=== PATIENT | female | born 2000 | race African-American/Black ===

== ENCOUNTER 2021-11-11 12:45 | Inpatient (IN) | payer OTHER ==
[~2021-11-11] VITALS: Ht 162.6 cm; Wt 108.0 kg
[2021-11-11 13:23] LABS: BASOPHILS % (AUTO) 0.5 % (0.0-2.0); EOSINOPHILS % (AUTO) 0.1 % (1.0-6.0); HEMATOCRIT 37.6 % (36-46); HEMOGLOBIN 12.7 g/dL (12.0-16.0); LYMPHOCYTES # (AUTO) 1.5 K/uL (1.0-4.8); LYMPHOCYTES % (AUTO) 17.1 % (22.0-44.0); MEAN CORPUSCULAR HEMOGLOBIN 31.1 pg (26.0-34.0); MEAN CORPUSCULAR HGB CONC 33.7 G/dL (31.0-37.0); MEAN CORPUSCULAR VOLUME 92 fL (80-100); MONOCYTES # (AUTO) 0.5 K/uL (0.1-1.0); MONOCYTES % (AUTO) 5.7 % (2.0-9.0); NEUTROPHILS # (AUTO) 6.5 K/uL (1.8-7.7); NEUTROPHILS % (AUTO) 76.6 % (40.0-70.0); PLATELET COUNT (AUTO) 254 K/uL (150-450); RED BLOOD CELL COUNT(AUTO) 4.08 MIL/uL (4.00-5.20)
[2021-11-11 13:32] LABS: ANION GAP 9 mmol/L (8-16); CALCIUM, TOTAL 9.9 mg/dL (8.8-10.5); CARBON DIOXIDE 28 mmol/L (22-29); CHLORIDE 103 mmol/L (98-107); CREATININE 0.79 mg/dL (0.60-1.30); GLOMERULAR FILTR. RATE CALC > 60 mL/min (>60); GLUCOSE,RANDOM 105 mg/dL (70-110); POTASSIUM 3.9 mmol/L (3.5-5.1); SODIUM SERUM 140 mmol/L (136-145); UREA NITROGEN, BLOOD 11 mg/dL (7-18)
[2021-11-11 13:38] LABS: ALANINE AMINOTRANSFERASE 31 U/L (12-78); ALBUMIN 4.2 g/dL (3.4-5.0); ALKALINE PHOSPHATASE 137 U/L (46-116); ASPARTATE AMINOTRANSFERASE 50 U/L (15-37); TOTAL PROTEIN, SERUM 8.7 g/dL (6.4-8.2)
[2021-11-11] MEDS ORDERED: LORazepam 1 MG TABLET PO ONE (14:00)
[2021-11-11] MEDS ORDERED: BACITRACIN 0.9 GM PACKET OINTMENT TP ONE (14:00)
[2021-11-11 14:07] LABS: SALICYLATE < 2.8 mg/dL (2.8-20.0)
[2021-11-11 14:11] LABS: ACETAMINOPHEN 37 mcg/mL (10-30)
[2021-11-11 14:27] LABS: COVID AG,FIA SOURCE NASOPHARYNGEAL
[2021-11-11] MEDS ORDERED: LORazepam 2 MG TABLET PO PRN (20:00)
[2021-11-11] MEDS ORDERED: QUEtiapine FUMARATE 100 MG TABLET PO PRN (20:00)
[2021-11-11] MEDS ORDERED: INFLUENZA VIRUS VACCINE QVS 2021-22 (6MO+)/PF 60 MCG/0.5 ML SYRINGE IM. ONE (20:15)
[2021-11-11 20:19] VITALS: BP 129/83
[2021-11-11] MEDS: ZOLPIDEM TARTRATE 10 MG TABLET PO PRN (21:37)
[2021-11-12 07:05] LABS: CHOL/HDL RATIO 3.5 (3.9-5.7)
[2021-11-12 08:00] VITALS: BP 108/70
[2021-11-12] MEDS: BuPROPion HCL XL 150 MG ER TABLET PO SCH (10:18)
[2021-11-12] MEDS: BACITRACIN 28 GM OINTMENT TP SCH ×2 (10:19→16:44)
[2021-11-12 16:41] VITALS: BP 102/61
[2021-11-12] MEDS: ZOLPIDEM TARTRATE 10 MG TABLET PO PRN (20:10)
[2021-11-13] MEDS: BuPROPion HCL XL 150 MG ER TABLET PO SCH (08:13)
[2021-11-13 08:34] VITALS: BP 132/95
[2021-11-13] MEDS: BACITRACIN 28 GM OINTMENT TP SCH (10:12)
[2021-11-13] MEDS ORDERED: BUPR-93 PO (10:20)
== END 2021-11-13 13:30 | disposition home or self-care (01) | DRG 885 ==
LOC: EMS 12:45 → 3EC 18:43
PROVIDERS: ADMIT Psychiatry & Neurology Child & Adolescent Psychiatry; ATTEND Psychiatry & Neurology Child & Adolescent Psychiatry
DX: F33.2 Major depressive disorder, recurrent severe without psychotic features (principal); R45.851 Suicidal ideations; Z20.822 Contact with and (suspected) exposure to COVID-19; S71.119A Laceration without foreign body, unspecified thigh, initial encounter; W18.39XA Other fall on same level, initial encounter; E83.51 Hypocalcemia; Z91.52 Personal history of nonsuicidal self-harm; Y93.89 Activity, other specified; Y92.89 Other specified places as the place of occurrence of the external cause; Y99.8 Other external cause status
CPT/HCPCS: 80053; 80061; 84703; 85025; 90686; 99285; G0480; G0481